=== PATIENT | male | born 1945 | race Caucasian/White ===

== ENCOUNTER 2018-02-27 17:47 | Inpatient (IN) | payer MEDICARE, OTHER ==
[~2018-02-27 17:47] MED LIST: AMLODIPINE BESY10 MG PO; ATENOLOL50 MG PO; COMBIVENT RESPIM4 GM IH; HYDROCHLOROTHIA25 MG PO
[2018-02-27] MEDS ORDERED: HYDROCODONE/APAP 7.5MG-325MG 1 EA TAB PO PRN (18:30)
[2018-02-27 19:36] LABS: BASOPHILS # (AUTO) 0.1 (0.0-0.1); BASOPHILS % 0.7 % (0.0-1.0); EOSINOPHILS # (AUTO) 0.5 (0.0-0.4); EOSINOPHILS % 4.2 % (0.0-6.0); HEMATOCRIT 42.5 % (38.2-49.6); HEMOGLOBIN 14.1 g/dL (14.0-18.0); LYMPHOCYTES # (AUTO) 2.5 (1.0-3.2); LYMPHOCYTES % 23.5 % (18.0-39.1); MEAN CORPUSCULAR HEMOGLOBIN 29.5 pg (28-32); MEAN CORPUSCULAR HGB CONC 33.2 g/dL (31-35); MEAN CORPUSCULAR VOLUME 88.9 fL (81-99); MONOCYTES # (AUTO) 0.8 (0.2-0.8); NEUTROPHILS # (AUTO) 6.8 (2.1-6.9); NEUTROPHILS % 64.1 % (38.7-80.0); PLATELET COUNT 315 x10e3/uL (140-360); RED BLOOD COUNT 4.78 x10e6/uL (4.3-5.7); RED CELL DISTRIBUTION WIDTH 13.9 % (11.7-14.4)
[2018-02-27 19:43] LABS: INR 1.06
[2018-02-27 19:53] LABS: ALANINE AMINOTRANSFERASE 35 IU/L (0-55); ALKALINE PHOSPHATASE 72 IU/L (40-150); ANION GAP 12.5 mmol/L (8-16); BLOOD UREA NITROGEN 22 mg/dL (7-26); BUN/CREATININE RATIO 20 (6-25); CALCIUM 9.3 mg/dL (8.4-10.2); CARBON DIOXIDE 29 mmol/L (22-29); CHLORIDE 97 mmol/L (98-107); CREATININE, SERUM 1.12 mg/dL (0.72-1.25); EST GLOMERULAR FILTRATION RATE > 60 ML/MIN (60-); GLUCOSE 133 mg/dL (74-118); POTASSIUM 3.5 mmol/L (3.5-5.1); SODIUM 135 mmol/L (136-145)
[2018-02-27 20:00] VITALS: BP 155/69
[2018-02-27 21:00] VITALS: BP 155/69
[2018-02-27 23:44] VITALS: BP 155/69
[2018-02-28] VITALS (7 sets, daily range): BP systolic 130–158; BP diastolic 63–74
[2018-02-28] MEDS ORDERED: HYDROCODONE/APAP 7.5MG-325MG 1 EA TAB PO PRN (03:00)
[2018-02-28] MEDS: HYDROCODONE/APAP 7.5MG-325MG 1 EA TAB PO PRN ×3 (03:18→21:22)
[2018-02-28] MEDS: DEXTROSE 5%/0.9% SOD CHL 1,000 ML IV SCH (03:19)
[2018-02-28] MEDS: IPRATROPIUM BROMIDE INH SCH ×2 (07:00→19:33)
[2018-02-28] MEDS: ALBUTEROL/IPRATROPIUM 3 ML NEB NEB SCH ×3 (07:00→19:33)
[2018-02-28 08:23] LABS: ABG PH 7.39 (7.31-7.41)
[2018-02-28 08:24] LABS: ABG HCO3 29 mmol/L (23-28); ABG PCO2 48 mmHg (41-51); ABG PO2 81 mmHg (80-105)
--- NOTE | 2018-02-28 08:58 | Diagnostic Imaging Report ---
PROCEDURE:CHEST 2 VIEWS TECHNIQUE:PA and lateral chest INDICATION:Herniated right lung COMPARISON:None. FINDINGS: Lungs are clear and symmetrically inflated. Right lateral basilar lower lobe extends beyond the right thoracic cavity superior margin of the ninth rib. This is present to lesser effect on the left. No pleural effusions. Upper limits normal heart size for technique with normal central vasculature. Intact skeleton with multilevel degenerative disc disease and shoulder osteoarthritis. CONCLUSION: The basilar aspects of the lungs (right greater than left) extend beyond the lateral margin of the upper thoracic cage, but remain along the superior margin of the ninth ribs. There is associated mild widening of the eighth intercostal spaces bilaterally. Dictated by: Alex Wilkins M.D. on 02/28/2018 at 8:59 Electronically approved by: Alex Wilkins M.D. on 02/28/2018 at 8:59
[2018-02-28] MEDS: SERTRALINE HCL 50 MG TAB PO SCH (09:00)
[2018-02-28] MEDS ORDERED: IPRATROPIUM/ALBUTEROL SULFATE 4 GM INH INH SCH (09:00)
[2018-02-28] MEDS: LOSARTAN POTASSIUM 25 MG TAB PO SCH (09:00)
[2018-02-28] MEDS: ATENOLOL 50 MG TAB PO SCH (09:00)
[2018-02-28] MEDS ORDERED: ATENOLOL 50 MG TAB PO SCH (09:00)
[2018-02-28] MEDS: AMLODIPINE BESYLATE 10 MG TAB PO SCH (09:00)
[2018-02-28] MEDS: HYDROCHLOROTHIAZIDE 25 MG TAB PO SCH (09:00)
[2018-02-28] MEDS ORDERED: NON-FORMULARY MEDICATION (Ipratropium/Albuterol Sulfate (Combivent Respimat Inhal Spray) 4 IH SCH (09:00)
[2018-02-28] MEDS: DOCUSATE SODIUM 100 MG CAP PO SCH ×2 (11:10→16:52)
--- NOTE | 2018-02-28 16:06 | History and Physical ---
This is a patient of [facility], Dr. Benjamin Fernando, Dr. Shabazz, and Dr. Jay. 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 He has a history of severe gastroesophageal reflux with erosive gastritis and stricture. History of skin cancer. History of hypertension. 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 He is admitted from the office in severe pain. The patient has quit smoking in 1984. He has an advanced directive that is filed with his sister. He has had foot surgery. He has chronic numbness and shooting pains in the upper extremity which he relates to his degenerative disease of the spine. This has been resistant to head and neck surgery. He is somewhat overweight. He is anxious. He has difficulty sitting still because of severe right-sided chest pain. PHYSICAL EXAMINATION HEENT: Head is normocephalic and atraumatic. There is decreased range of motion in the neck. LUNGS: Diminished breath sounds. There is a spongy sensation in the right chest wall at approximately the 9th intercostal space. ABDOMEN: Obese. EXTREMITIES: Not edematous. IMPRESSION: Herniated lung. The patient is referred for thoracic surgical opinion. The patient is afebrile. The blood pressure is 147/76 despite the pain. O2 saturation is 97% on room air. Will continue home medications pending surgical opinion. The patient will be admitted from the office. Job#: [id number] cc:BENJAMIN FERNANDO MD
[2018-03-01] VITALS (9 sets, daily range): BP systolic 112–146; BP diastolic 59–68
[2018-03-01] MEDS: ALBUTEROL/IPRATROPIUM 3 ML NEB NEB SCH ×4 (01:12→19:46)
[2018-03-01] MEDS: DEXTROSE 5%/0.9% SOD CHL 1,000 ML IV SCH (02:52)
[2018-03-01] MEDS: IPRATROPIUM BROMIDE INH SCH ×2 (07:00→19:00)
[2018-03-01] MEDS: DOCUSATE SODIUM 100 MG CAP PO SCH ×2 (09:46→17:00)
[2018-03-01] MEDS: LOSARTAN POTASSIUM 25 MG TAB PO SCH (09:46)
[2018-03-01] MEDS: SERTRALINE HCL 50 MG TAB PO SCH (09:46)
[2018-03-01] MEDS: HYDROCHLOROTHIAZIDE 25 MG TAB PO SCH (09:46)
[2018-03-01] MEDS: ATENOLOL 50 MG TAB PO SCH (09:46)
[2018-03-01] MEDS: AMLODIPINE BESYLATE 10 MG TAB PO SCH (09:46)
[2018-03-01] MEDS: HYDROCODONE/APAP 7.5MG-325MG 1 EA TAB PO PRN ×2 (10:22→22:02)
[2018-03-02] VITALS: BP 139/63
[2018-03-02] MEDS: ALBUTEROL/IPRATROPIUM 3 ML NEB NEB SCH ×2 (01:00→07:40)
[2018-03-02 04:05] VITALS: BP 142/65
[2018-03-02] MEDS: IPRATROPIUM BROMIDE INH SCH (07:00)
[2018-03-02 07:20] VITALS: BP 132/65
[2018-03-02] MEDS: HYDROCODONE/APAP 7.5MG-325MG 1 EA TAB PO PRN (07:20)
[2018-03-02 07:42] VITALS: BP 132/65
[2018-03-02] MEDS: DOCUSATE SODIUM 100 MG CAP PO SCH (09:35)
[2018-03-02] MEDS: LOSARTAN POTASSIUM 25 MG TAB PO SCH (09:36)
[2018-03-02] MEDS: HYDROCHLOROTHIAZIDE 25 MG TAB PO SCH (09:36)
[2018-03-02] MEDS: AMLODIPINE BESYLATE 10 MG TAB PO SCH (09:36)
[2018-03-02] MEDS: SERTRALINE HCL 50 MG TAB PO SCH (09:37)
[2018-03-02] MEDS: ATENOLOL 50 MG TAB PO SCH (09:37)
[2018-03-02 11:42] VITALS: BP 114/59
--- NOTE | 2018-03-02 15:55 | Discharge Summary ---
DISPOSITION: Patient transferred to [facility] at the request of Dr. Fernando. Admitted with severe right-sided chest pain. Found to have herniated lung. Injury was related to chronic cough. Most recently, an upper respiratory tract infection approximately 6 weeks ago with sudden onset of severe pain and spasm and subcutaneous hematoma in the right chest. The hematoma resolved, but the pain persisted. CAT scan revealed lung protruding through the 9th intercostal space. The patient has a history of hypertension, degenerative joint disease, rheumatoid arthritis, cervical radiculopathy, gastroesophageal reflux with stricture, skin cancers in the past, hypertension, carpal tunnel syndrome, moderate obstructive pulmonary disease, diverticular disease. History of smoking but quit in 1984. Advanced directive has been filed with his sister. He also has had foot surgery. He was seen by Dr. Fernando. He was felt to be a high postoperative surgical risk and possibly a high intraoperative risk. The decision was made in agreement with the family to transfer to [facility] for definitive therapy. Blood gases revealed moderate respiratory failure with CO2 elevation of 48, pO2 81, pH 7.39. Screening spirometry was ordered but was not performed. Pain was controlled with Vicodin 7.5 per 3.5. He is discharged to continue DuoNeb, Norvasc 10, Tenormin 50, Colace, hydrochlorothiazide, losartan 25 and sertraline 25 mg. He is transferred to Dr. Fernando's service at [facility]. ALEJANDRA DAILEY MD Job#: [id number]
== END 2018-03-02 14:21 | disposition short-term general hospital (02) | DRG 205 ==
LOC: MED/SURG3 17:47
PROVIDERS: ADMIT Internal Medicine Pulmonary Disease; ATTEND Internal Medicine Pulmonary Disease
DX: J98.4 Other disorders of lung (principal); J96.90 Respiratory failure, unspecified, unspecified whether with hypoxia or hypercapnia; J44.9 Chronic obstructive pulmonary disease, unspecified; Z87.891 Personal history of nicotine dependence; K21.9 Gastro-esophageal reflux disease without esophagitis; M47.892 Other spondylosis, cervical region; E66.3 Overweight; M06.9 Rheumatoid arthritis, unspecified; Z68.34 Body mass index [BMI] 34.0-34.9, adult
CPT/HCPCS: 36415; 36600; 71046; 80053; 82805; 85025; 85610; 93005; 94640; 96361; J7042

== ENCOUNTER → 2018-04-06 | Outpatient (CLI) | payer MEDICARE ==
--- NOTE | 2018-04-06 13:26 | Diagnostic Imaging Report ---
PROCEDURE: Frontal and lateral views of the chest. COMPARISON: None. INDICATIONS: HERNIA REPAIR POST SURGERY, HERNIATED LUNG BETWEEN RIBS FINDINGS: Lines/tubes: None. Lungs: The lungs are well inflated and clear. There is no evidence of pneumonia or pulmonary edema. Pleura: Small right pleural effusion or pleural thickening. Heart and mediastinum: The heart and the mediastinum are normal. Bones: Multilevel changes of the thoracic spine. IMPRESSION: Small right pleural effusion or pleural thickening. Dictated by: Micah Lund M.D. on 04/06/2018 at 13:28 Electronically approved by: Micah Lund M.D. on 04/06/2018 at 13:28
== END ==
LOC: RAD 12:37
PROVIDERS: ATTEND Internal Medicine Pulmonary Disease
DX: K46.9 Unspecified abdominal hernia without obstruction or gangrene (principal)
CPT/HCPCS: 71046

== ENCOUNTER → 2021-11-11 | Day surgery (SDC) | payer MEDICARE ==
[2021-11-06 10:44] LABS: BASOPHILS # (AUTO) 0.1 (0.0-0.1); BASOPHILS % 0.6 % (0.0-1.0); EOSINOPHILS # (AUTO) 0.3 (0.0-0.4); EOSINOPHILS % 3.4 % (0.0-6.0); HEMATOCRIT 40.4 % (38.2-49.6); HEMOGLOBIN 12.9 g/dL (14.0-18.0); LYMPHOCYTES % 21.6 % (18.0-39.1); MEAN CORPUSCULAR HEMOGLOBIN 29.1 pg (28-32); MEAN CORPUSCULAR HGB CONC 31.9 g/dL (31-35); MEAN CORPUSCULAR VOLUME 91.2 fL (81-99); MONOCYTES # (AUTO) 0.6 (0.2-0.8); MONOCYTES % 6.6 % (4.4-11.3); NEUTROPHILS # (AUTO) 6.3 (2.1-6.9); NEUTROPHILS % 67.5 % (38.7-80.0); PLATELET COUNT 266 x10e3/uL (140-360); RED BLOOD COUNT 4.43 x10e6/uL (4.3-5.7); RED CELL DISTRIBUTION WIDTH 13.3 % (11.7-14.4)
[2021-11-06 11:06] LABS: ALBUMIN 3.6 g/dL (3.5-5.0); ANION GAP 13.2 mmol/L (8-16); CALCIUM 8.8 mg/dL (8.4-10.2); CHOL/HDL RATIO 2.9 (3.9-4.7); CREATININE, SERUM 1.11 mg/dL (0.72-1.25); POTASSIUM 4.2 mmol/L (3.5-5.1)
[2021-11-06 11:14] LABS: INR 1.02; PROTHROMBIN TIME 14.2 seconds (11.9-14.5)
[2021-11-06 11:15] LABS: PARTIAL THROMBOPLASTIN TIME 28.5 seconds (23.8-35.5)
[2021-11-11] VITALS (13 sets, daily range): BP systolic 104–162; BP diastolic 52–111
[~2021-11-11] VITALS: Ht 170.2 cm; Wt 113.4 kg
[~2021-11-11] MED LIST changes: +ASPIRIN 325 MG TAB ONE; +ASPIRIN81 MG PO; +AVODART0.5 MG PO; +CELEBREX200 MG PO; +CILOSTAZOL100 MG PO; +CLOPIDOGREL BISULFATE 75 MG TAB ONE; +FENTANYL CITRATE/PF 100MCG/2 ML INJ ONE; +HEPARIN SOD (PORCINE) 1000 UNIT/ML 30ML ONE; +HEPARIN SOD/SOD CHLORIDE 2,000 ML ONE; +IOPAMIDOL 300MG/ML 100 ML INFUS..BTL IV ONE; +LASIX20 MG PO; +LIDOCAINE HCL 2% LOCAL 20 ML VIAL ONE; +LOSARTAN POTASS25 MG PO; +METOPROLOL SUCC50 MG PO; +MIDAZOLAM HCL 2 MG/2 ML VIAL ONE; +NAPROXEN250 MG PO; +NITROGLYCERIN/D5W 200 MCG/ML 250 ML ONE; +OMEPRAZOLE40 MG PO; +POTASSIUM CHLO10 ME1 PO; +SIMVASTATIN20 MG PO; +SODIUM CHLORIDE 0.9% 1000ML 1,000 ML ONE; +TERAZOSIN HCL5 MG PO; +VERAPAMIL HCL 2.5 MG/ML 2 ML VIAL ONE
== END | disposition home or self-care (01) ==
LOC: CATH LAB 08:27
PROVIDERS: ATTEND Internal Medicine Cardiovascular Disease
DX: I70.213 Atherosclerosis of native arteries of extremities with intermittent claudication, bilateral legs (principal); R00.2 Palpitations; R60.9 Edema, unspecified; I65.29 Occlusion and stenosis of unspecified carotid artery; E78.5 Hyperlipidemia, unspecified; E66.01 Morbid (severe) obesity due to excess calories; I10 Essential (primary) hypertension; M06.9 Rheumatoid arthritis, unspecified; Z01.812 Encounter for preprocedural laboratory examination; Z20.822 Contact with and (suspected) exposure to COVID-19; Z79.82 Long term (current) use of aspirin; Z79.899 Other long term (current) drug therapy; Z82.49 Family history of ischemic heart disease and other diseases of the circulatory system; Z82.3 Family history of stroke
CPT/HCPCS: 36415; 37225; 37228; 75625; 80053; 80061; 85025; 85610; 85730; C1725 ×2; C1760; C1769 ×3; C1887 ×2; C2623; J1644; J2001; J2250; J3010; J7030; Q9967; U0002; 36247; 75716; 99152; 99153